=== PATIENT | male | born 1940 | race Caucasian/White ===

== ENCOUNTER → 2019-10-12 | Outpatient (CLI) | payer MEDICARE ==
[~2019-10-12] MED LIST: REGADENOSON 0.4 MG/5 ML SYRINGE ONE
== END | disposition home or self-care (01) ==
LOC: CFH 07:29
PROVIDERS: ATTEND Internal Medicine Cardiovascular Disease
DX: I10 Essential (primary) hypertension (principal); R06.02 Shortness of breath
CPT/HCPCS: 78452; 93017; A9502; J2785

== ENCOUNTER 2020-06-01 00:16 | Emergency (ER) | payer MEDICARE ==
[~2020-06-01] VITALS: Ht 170.2 cm; Wt 92.2 kg
[2020-06-01] MEDS ORDERED: SODIUM CHLORIDE FLUSH 10ML SYR IVF ONE (01:00)
[2020-06-01] MEDS ORDERED: MORPHINE SULFATE 4 MG/ML, 1ML IVPush PRN (01:00)
--- NOTE | 2020-06-01 01:04 | NUR ---
Task RN. Assessment- A&o x4. Answering questions apppropriately. Speaking in clear, full sentences. States he had a mechanical fall yesterday afternoon onto L ribs. Denies head strike, denies LOC, (-) thinners. Worsening pain to L side starting today with associated worsening SOB. States difficult time taking deep breaths. No swelling/ecchymosis/gross deformities noted. No s/sx acute respiratory distress. No use of accessory muscles noted. O2 high 90s RA. Denies chest pain. Denies N/V/D. Ambulating independently, steady gait. ED MD at bedside upon arrival for eval
[2020-06-01 01:06] LABS: BASOPHILS % (AUTO) 1 % (0-1); EOSINOPHILS % (AUTO) 2 % (1-7); LYMPHOCYTES % (AUTO) 23 % (22-44); MEAN CORPUSCULAR HEMOGLOBIN 31.9 pg (27.5-34.5); MONOCYTES % (AUTO) 9 % (2-9); NEUTROPHILS % (AUTO) 66 % (42-75); PLATELET COUNT 204 x10^3/uL (130-400)
--- NOTE | 2020-06-01 01:08 | NUR ---
Pt declines pain meds at this time. Aware they are available PRN. Bed low, side rails up, call hu within reach. at bedside with pt consent
[2020-06-01 01:12] LABS: MD NO
[2020-06-01 01:17] LABS: ALBUMIN 3.9 g/dL (3.4-5.0); ANION GAP 8 mmol/L (5-15); CALCIUM 9.3 mg/dL (8.5-10.1); CHLORIDE 103 mmol/L (98-107); CREATININE 1.89 mg/dL (0.7-1.3)
[2020-06-01 01:21] LABS: TROPONIN I < 0.015 ng/mL (0.000-0.045)
--- NOTE | 2020-06-01 01:27 | NUR ---
REPORT FROM [employer] FOREM[facility]. PT TO CT
--- NOTE | 2020-06-01 02:22 | NUR ---
BEDSIDE REPORT FROM [facility]OME[facility] FOREM[facility]. PT CARE TRANSFERRED AT THIS TIME. PT NAD, DENIES ADDITIONAL NEEDS AT THIS TIME, EVEN AND UNLABORED RESPIRATIONS. WAITING FOR CT READ, WCTM.
--- NOTE | 2020-06-01 03:05 | NUR ---
BRANDON MIRELES AT . RECOMMENDED ADMISSION TO HOSPITAL, PT DENIED, RISKS AND BENEFITS THOROUGHLY DISCUSSED. PT ELECTED TO GO HOME. PROVIDED INCENTIVE SPIROMETER, DEMONSTRATED APPROPRIATE USE. TREV.
[2020-06-01 03:27] VITALS: BP 105/68
--- NOTE | 2020-06-01 03:28 | NUR ---
Patient/Caregiver given discharge instructions and they have confirmed that they understand the instructions. Patient ambulatory with steady gait.
== END 2020-06-01 03:39 | disposition home or self-care (01) ==
LOC: ED 01:14
DX: S22.42XA Multiple fractures of ribs, left side, initial encounter for closed fracture (principal); G89.11 Acute pain due to trauma; R07.89 Other chest pain; E11.9 Type 2 diabetes mellitus without complications; X58.XXXA Exposure to other specified factors, initial encounter; Y93.89 Activity, other specified; Y92.89 Other specified places as the place of occurrence of the external cause; Y99.8 Other external cause status
CPT/HCPCS: 36415; 71250; 80048; 82040; 84484; 85025; 93005; 99285

== ENCOUNTER → 2020-08-14 | Outpatient (CLI) | payer MEDICARE | END | disposition home or self-care (01) | LOC: CVU 07:29 | PROVIDERS: ATTEND Family Medicine | DX: E11.21 Type 2 diabetes mellitus with diabetic nephropathy (principal); E29.1 Testicular hypofunction; R20.9 Unspecified disturbances of skin sensation; I10 Essential (primary) hypertension; Z87.81 Personal history of (healed) traumatic fracture | CPT/HCPCS: 77080; 93922 ==